=== PATIENT | female | born 2000 | race African-American/Black ===

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

== ENCOUNTER 2022-01-26 12:04 | Day surgery (SDC) | payer OTHER | END 2022-01-26 13:45 | disposition home or self-care (01) | LOC: CSHLD/OP 12:04 | PROVIDERS: ATTEND Student in an Organized Health Care Education/Training Program | DX: O26.852 Spotting complicating pregnancy, second trimester (principal); O99.891 Other specified diseases and conditions complicating pregnancy; R25.2 Cramp and spasm; O36.8320 Maternal care for abnormalities of the fetal heart rate or rhythm, second trimester, not applicable or unspecified; Z3A.26 26 weeks gestation of pregnancy; Z79.82 Long term (current) use of aspirin; Z88.0 Allergy status to penicillin; Z88.2 Allergy status to sulfonamides | CPT/HCPCS: 99282 ==

== ENCOUNTER 2022-03-19 22:48 | Day surgery (SDC) | payer OTHER ==
[2022-03-20 00:12] VITALS: BMI 44.4
[2022-03-20] MEDS ORDERED: hydrALAZINE 20 MG/ML VIAL SLOW IVP PRN (00:22)
[2022-03-20 00:54] LABS: Bilirubin Neg (Negative); Blood, Urine Negative (Negative); Clarity Slightly Cloudy (Clear); Glucose, Urine (Dipstick) Normal (Negative); Ketone, Urine Negative (Negative); Leukocyte 500 (Negative); Nitrite Negative (Negative); Protein, Urine (Dipstick) 15 mg/dl (Neg-Trace); Specific Gravity, Urine 1.015 (1.005-1.030); Urobilinogen Normal mg/dL (Less than 2)
[2022-03-20] MEDS ORDERED: Acetaminophen 500 MG TAB PO SCH (01:00)
[2022-03-20 01:05] LABS: #Neutrophils 6.2 10x3/uL (1.5-8.4); %Basophils 0.2 % (0.0-2.0); %Eosinophils 0.4 % (0.0-6.0); %Lymphocytes 23.8 % (18.0-47.0); %Monocytes 10.7 % (0.0-10.0); %Neutrophils 64.6 % (40.0-75.0); Hemoglobin 10.4 g/dL (12.0-15.5); Mean Corpuscular HGB CONC 34.2 g/dL (32.0-36.0); Mean Corpuscular Hemoglobin 28.6 pg (27.0-33.0); Mean Corpuscular Volume 83.5 fl (81.6-98.3); Mean Platelet Volume 9.7 fl (7.4-10.4); Platelet Count 273 10x3/uL (150-450); RBC Distribution Width 14.4 % (11.5-14.5); Red Blood Cell (RBC) Count 3.64 10x6/uL (3.90-5.03); White Blood Cell (WBC) Count 9.6 10x3/uL (3.5-10.5)
[2022-03-20] MEDS ORDERED: Acetaminophen 500 MG TAB ONE (01:11)
[2022-03-20 01:20] LABS: ALT (SGPT) 9 U/L (8-55); AST (SGOT) 14 U/L (5-30); Albumin 3.6 g/dL (3.5-5.0); Alkaline Phosphatase 98 U/L (40-100); Anion Gap 13 mmol/L (10-20); BUN (Urea Nitrogen) 5 mg/dL (8.4-21.0); Bilirubin, Total 0.3 mg/dL (0.2-1.2); Calc. Creatinine Clearance 270 mL/min (70-130); Calcium 9.2 mg/dL (7.8-10.44); Carbon Dioxide 20 mmol/L (22-29); Chloride 107 mmol/L (98-107); Estimated GFR 128; Globulin 3.2 g/dL (2.4-3.5); Glucose 100 mg/dL (70-105); Magnesium 1.6 mg/dL (1.7-2.2); Potassium 3.5 mmol/L (3.5-5.1); Protein, Total 6.8 g/dL (6.0-8.3); Sodium 136 mmol/L (136-145)
[2022-03-20 01:21] LABS: Bacteria/HPF 4+ HPF (None Seen); CAUTI Indications for Culture Pelvic or flank pain; RBC/HPF None Seen HPF (0-3)
[2022-03-20 01:23] LABS: Urine Culture Reflex No No
[2022-03-20] MEDS ORDERED: Magnesium Oxide 400 MG TAB PO SCH (02:45)
== END 2022-03-20 03:10 | disposition home or self-care (01) ==
LOC: CSHERS 22:48 → CSHLD/OP 23:50
PROVIDERS: ATTEND Obstetrics & Gynecology
DX: O47.02 False labor before 37 completed weeks of gestation, second trimester (principal); O99.213 Obesity complicating pregnancy, third trimester; O99.283 Endocrine, nutritional and metabolic diseases complicating pregnancy, third trimester; E83.42 Hypomagnesemia; O99.353 Diseases of the nervous system complicating pregnancy, third trimester; R56.9 Unspecified convulsions; Z3A.33 33 weeks gestation of pregnancy; Z79.82 Long term (current) use of aspirin; Z79.899 Other long term (current) drug therapy; Z88.0 Allergy status to penicillin; Z88.2 Allergy status to sulfonamides
CPT/HCPCS: 80053; 81001; 83735; 85025; 87086; 99284

== ENCOUNTER 2022-04-17 18:35 | Day surgery (SDC) | payer OTHER ==
[2022-04-17 19:10] VITALS: BMI 44.1
[2022-04-17] MEDS ORDERED: hydrALAZINE 20 MG/ML VIAL SLOW IVP PRN (19:31)
[2022-04-17 19:50] LABS: Fetal Membranes Rupture No Membranes Rupture (No Rupture)
== END 2022-04-17 21:27 | disposition home or self-care (01) ==
LOC: CSHLD/OP 18:35
PROVIDERS: ATTEND Obstetrics & Gynecology
DX: Z03.71 Encounter for suspected problem with amniotic cavity and membrane ruled out (principal); O23.593 Infection of other part of genital tract in pregnancy, third trimester; B96.89 Other specified bacterial agents as the cause of diseases classified elsewhere; Z88.0 Allergy status to penicillin; Z88.2 Allergy status to sulfonamides; Z3A.37 37 weeks gestation of pregnancy
CPT/HCPCS: 84112; 87480; 87510; 87660; 99285

== ENCOUNTER 2022-04-29 05:30 | Inpatient (IN) | payer OTHER ==
[2022-04-29] MEDS ORDERED: Bupivacaine/Epinephrine 0.25% 30 ML VIAL ONE (18:45)
[2022-04-29] MEDS ORDERED: Bupivacaine PF 0.5% 30 ML VIAL ONE (18:45)
[2022-04-29] MEDS ORDERED: Lidocaine 2% PF 5 ML VIAL ONE (18:45)
[2022-04-29] MEDS ORDERED: hydrALAZINE 20 MG/ML VIAL SLOW IVP PRN (19:32)
[2022-04-29] MEDS ORDERED: Methylergonovine 0.2 MG/ML VIAL IM PRN (19:32)
[2022-04-29] MEDS ORDERED: HYDROcodone/Acetaminophen 5/325 mg Tablet PO PRN ×2 (19:32)
[2022-04-29] MEDS ORDERED: Promethazine HCl 25 MG/ML VIAL IM PRN (19:32)
[2022-04-29] MEDS ORDERED: Ibuprofen 800 MG TAB PO PRN (19:32)
[2022-04-29] MEDS ORDERED: Misoprostol 200 MCG TAB PR PRN (19:32)
[2022-04-29] MEDS ORDERED: Ondansetron PF 4 MG/2 ML Vial IVP PRN (19:32)
[2022-04-29] MEDS ORDERED: Lidocaine 1% (PF) 30 ML VIAL SC PRN (19:32)
[2022-04-29] MEDS ORDERED: NS w/ Oxytocin 30 units 500 ML IV SCH (19:45)
[2022-04-29 20:58] VITALS: BMI 44.1
[2022-04-29] MEDS: Misoprostol 100 MCG TAB VAG SCH (21:02)
[2022-04-29 21:24] LABS: Hemoglobin 9.5 g/dL (12.0-15.5); Mean Corpuscular HGB CONC 32.1 g/dL (32.0-36.0); Mean Corpuscular Hemoglobin 25.7 pg (27.0-33.0); Mean Platelet Volume 9.6 fl (7.4-10.4); Platelet Count 305 10x3/uL (150-450); RBC Distribution Width 15.9 % (11.5-14.5); White Blood Cell (WBC) Count 8.7 10x3/uL (3.5-10.5)
[2022-04-29 21:36] LABS: HBSAg Index 0.15 S/CO (0-0.99); Hep B Surf Ag Non-Reactive S/CO (NonReactive); Syphilis Antibody Nonreactive (Nonreactive); Syphilis Antibody Index 0.08 S/CO (<1.00 Non-Reactive)
[2022-04-29 22:47] LABS: SARS-CoV-2 NAA Rapid Test Not Detected (NotDetected)
[2022-04-30] MEDS: Misoprostol 100 MCG TAB VAG SCH ×2 (00:14→04:11)
[2022-04-30] MEDS: Butorphanol Tartrate 1 MG/ML VIAL SLOW IVP PRN ×2 (13:05→15:34)
[2022-04-30] MEDS ORDERED: Fentanyl 2 mcg/Bup 0.1% Cadd 100 ML ONE (18:33)
[2022-04-30] MEDS ORDERED: Ondansetron PF 4 MG/2 ML Vial IVP PRN (19:09)
[2022-04-30] MEDS ORDERED: ePHEDrine Sulfate 50 MG/10 ML VIAL SLOW IVP PRN (19:09)
[2022-04-30] MEDS ORDERED: diphenhydrAMINE 50 MG/ML VIAL IVP PRN (19:09)
[2022-04-30] MEDS ORDERED: Lactated Ringer's 500 ML IV PRN (19:09)
[2022-04-30] MEDS ORDERED: Acetaminophen 325 MG TAB PO PRN (19:09)
[2022-04-30] MEDS ORDERED: Naloxone HCl 0.4 mg/ml Vial IVP PRN ×2 (19:09)
[2022-04-30] MEDS ORDERED: Moisturizing Cream (Eucerin) 113 GM JAR TOP PRN (19:09)
[2022-04-30] MEDS ORDERED: Promethazine HCl 25 MG/ML VIAL IM PRN (19:09)
[2022-04-30] MEDS: Fentanyl 2 mcg/Bupivacaine 0.1% Cassette 100 ML EPIDURAL SCH (19:10)
[2022-04-30] MEDS ORDERED: Communication Order-Pharmacy FS SCH (19:15)
[2022-05-01] MEDS: Fentanyl 2 mcg/Bupivacaine 0.1% Cassette 100 ML EPIDURAL SCH (01:27)
[2022-05-01] MEDS ORDERED: Azithromycin 500 MG VIAL ONE (01:38)
[2022-05-01] MEDS ORDERED: CEFAZOLIN 2 GM VIAL ONE (01:38)
[2022-05-01] MEDS ORDERED: diphenhydrAMINE 50 MG/ML VIAL IVP PRN (02:18)
[2022-05-01] MEDS ORDERED: Naloxone HCl 0.4 mg/ml Vial IVP PRN ×2 (02:18)
[2022-05-01] MEDS ORDERED: L&D-Morphine 4 MG/ML VIAL SLOW IVP PRN (02:18)
[2022-05-01] MEDS ORDERED: HYDROmorphone 2 MG/ML VIAL SLOW IVP PRN (02:18)
[2022-05-01] MEDS ORDERED: Naloxone HCl 0.4 mg/ml Vial IV PRN (02:18)
[2022-05-01] MEDS ORDERED: Fentanyl 100 MCG/2 ML VIAL SLOW IVP PRN (02:18)
[2022-05-01] MEDS ORDERED: Ondansetron HCl/PF 4 MG/2 ML Vial IVP PRN (02:18)
[2022-05-01] MEDS ORDERED: Moisturizing Cream (Eucerin) 113 GM JAR TOP PRN (02:18)
[2022-05-01] MEDS ORDERED: Ondansetron PF 4 MG/2 ML Vial IVP PRN (02:18)
[2022-05-01] MEDS ORDERED: Promethazine HCl 25 MG SUPP PR PRN (02:18)
[2022-05-01] MEDS ORDERED: Meperidine HCl/PF 25 MG/ML VIAL SLOW IVP PRN (02:18)
[2022-05-01] MEDS ORDERED: Promethazine HCl 25 MG/ML VIAL IM PRN (02:18)
[2022-05-01] MEDS ORDERED: Ondansetron PF 4 MG/2 ML Vial ONE (02:22)
[2022-05-01] MEDS ORDERED: Dexamethasone 4 mg/ml Vial ONE (02:22)
[2022-05-01] MEDS ORDERED: Oxytocin 10 UNITS/ML VIAL ONE (02:22)
[2022-05-01] MEDS ORDERED: Ketorolac Tromethamine 30 MG/ML VIAL IVP SCH (02:30)
[2022-05-01] MEDS ORDERED: Communication Order-Pharmacy FS SCH (02:30)
[2022-05-01] MEDS ORDERED: PHENYLEPHRINE-NS 100 MCG/ML 10 ML SYRINGE ONE (02:36)
[2022-05-01] MEDS ORDERED: Lidocaine 2% MPF 10 ML AMP (For Epidural Use) ONE (02:53)
[2022-05-01] MEDS ORDERED: Morphine PF 10 MG/10 ML VIAL ONE (02:59)
[2022-05-01 03:13] LABS: pH (Cord, venous) 7.369 (7.250-7.350)
[2022-05-01] MEDS ORDERED: hydrALAZINE 20 MG/ML VIAL SLOW IVP PRN (06:13)
[2022-05-01] MEDS ORDERED: Misoprostol 200 MCG TAB PR PRN (06:13)
[2022-05-01] MEDS ORDERED: Simethicone Chewable 80 MG TAB PO PRN (06:13)
[2022-05-01] MEDS ORDERED: Methylergonovine 0.2 MG/ML VIAL IM PRN (06:13)
[2022-05-01] MEDS ORDERED: Boostrix 0.5 ML (Tdap) VIAL (>/=7 yrs of age) IM ONE (06:13)
[2022-05-01] MEDS: Lactated Ringer's 1,000 ML IV SCH ×4 (06:51→15:39)
[2022-05-01] MEDS: Misoprostol 100 MCG TAB VAG SCH (07:02)
[2022-05-01] MEDS: Acetaminophen 325 MG TAB PO SCH ×5 (07:03→21:51)
[2022-05-01] MEDS: Docusate 100 MG CAP PO SCH ×2 (08:04→21:51)
[2022-05-01] MEDS: Prenatal Vitamin 1 TAB PO SCH (08:04)
[2022-05-01] MEDS: Ferrous Sulfate 325 MG TAB PO SCH ×2 (08:04→21:51)
[2022-05-01] MEDS: Ketorolac Tromethamine 30 MG/ML VIAL IVP PRN ×2 (08:04→14:35)
[2022-05-01 08:10] LABS: Hemoglobin 9.5 g/dL (12.0-15.5); Mean Corpuscular HGB CONC 32.2 g/dL (32.0-36.0); Mean Corpuscular Volume 80.8 fl (81.6-98.3); Mean Platelet Volume 9.6 fl (7.4-10.4); Platelet Count 294 10x3/uL (150-450); RBC Distribution Width 15.9 % (11.5-14.5); Red Blood Cell (RBC) Count 3.65 10x6/uL (3.90-5.03); White Blood Cell (WBC) Count 15.6 10x3/uL (3.5-10.5)
[2022-05-01] MEDS: HYDROcodone/Acetaminophen 5/325 mg Tablet PO PRN ×2 (16:55→21:51)
[2022-05-02] MEDS: HYDROcodone/Acetaminophen 5/325 mg Tablet PO PRN ×3 (02:30→19:25)
[2022-05-02] MEDS: Acetaminophen 325 MG TAB PO SCH ×6 (02:30→23:55)
[2022-05-02] MEDS: Ibuprofen 800 MG TAB PO SCH ×3 (05:57→21:15)
[2022-05-02] MEDS: Lactated Ringer's 1,000 ML IV SCH ×2 (07:01→09:34)
[2022-05-02] MEDS: Ferrous Sulfate 325 MG TAB PO SCH ×2 (09:10→21:15)
[2022-05-02] MEDS: Docusate 100 MG CAP PO SCH ×2 (09:11→21:14)
[2022-05-02] MEDS: Prenatal Vitamin 1 TAB PO SCH (09:11)
[2022-05-03] MEDS: Lactated Ringer's 1,000 ML IV SCH ×2 (04:06→11:53)
[2022-05-03] MEDS: Acetaminophen 325 MG TAB PO SCH ×2 (04:06→09:07)
[2022-05-03] MEDS: Ibuprofen 800 MG TAB PO SCH (06:14)
[2022-05-03 08:09] VITALS: BP 111/72; TEMP 98.1
[2022-05-03] MEDS: HYDROcodone/Acetaminophen 5/325 mg Tablet PO PRN (09:06)
[2022-05-03] MEDS: Docusate 100 MG CAP PO SCH (09:06)
[2022-05-03] MEDS: Prenatal Vitamin 1 TAB PO SCH (09:07)
[2022-05-03] MEDS: Ferrous Sulfate 325 MG TAB PO SCH (09:07)
== END 2022-05-03 13:26 | disposition home or self-care (01) | DRG 788 ==
LOC: CSHLD 20:01 → CSHPP 05-01 05:56
PROVIDERS: ADMIT Student in an Organized Health Care Education/Training Program; ATTEND Obstetrics & Gynecology
PROC: 10D00Z1 Extraction of Products of Conception, Low, Open Approach (ICD-10-PCS; principal; 2022-05-01)
PROC: 3E0334Z Introduction of Serum, Toxoid and Vaccine into Peripheral Vein, Percutaneous Approach (ICD-10-PCS; 2022-05-01)
PROC: 10907ZC Drainage of Amniotic Fluid, Therapeutic from Products of Conception, Via Natural or Artificial Opening (ICD-10-PCS; 2022-05-01)
PROC: 10H07YZ Insertion of Other Device into Products of Conception, Via Natural or Artificial Opening (ICD-10-PCS; 2022-05-01)
DX: O99.214 Obesity complicating childbirth (principal); O76 Abnormality in fetal heart rate and rhythm complicating labor and delivery; O99.344 Other mental disorders complicating childbirth; F31.9 Bipolar disorder, unspecified; Z20.822 Contact with and (suspected) exposure to COVID-19; F90.9 Attention-deficit hyperactivity disorder, unspecified type; Z3A.39 39 weeks gestation of pregnancy; Z37.0 Single live birth; Z88.0 Allergy status to penicillin; Z88.2 Allergy status to sulfonamides; Z88.1 Allergy status to other antibiotic agents; O90.81 Anemia of the puerperium; D64.9 Anemia, unspecified; Z79.899 Other long term (current) drug therapy; O26.893 Other specified pregnancy related conditions, third trimester; Z67.31 Type AB blood, Rh negative; Z79.82 Long term (current) use of aspirin; E66.01 Morbid (severe) obesity due to excess calories
CPT/HCPCS: 36415; 51702; 82805; 85027; 85461; 86780; 86850; 86900; 86901; 87340; 90384; 96372; J0595; J1100; J1885; J2001; J2274; J2405; J2590; S0020; U0002

== ENCOUNTER 2022-10-26 18:27 | Emergency (ER) | payer OTHER, SELFPAY | END 2022-10-26 20:01 | disposition home or self-care (01) | LOC: CSHERS 18:27 | DX: B35.1 Tinea unguium (principal) | CPT/HCPCS: 99283 ==

== ENCOUNTER 2023-12-08 19:47 | Emergency (ER) | payer SELFPAY ==
[2023-12-08 22:17] LABS: #Basophils 0.06 10x3/uL (0.0-0.2); #Eosinophils 0.41 10x3/uL (0.0-0.5); #Monocytes 1.21 10x3/uL (0.0-1.1); #Neutrophils 4.18 10x3/uL (1.5-8.4); %Basophils 0.6 % (0.0-2.0); %Eosinophils 4.2 % (0.0-6.0); %Lymphocytes 38.9 % (18.0-47.0); %Monocytes 12.4 % (0.0-10.0); %Neutrophils 42.8 % (40.0-75.0); ALT (SGPT) 16 U/L (8-55); AST (SGOT) 20 U/L (5-34); Albumin 4.4 g/dL (3.5-5.0); Alkaline Phosphatase 49 U/L (40-110); Anion Gap 16 mmol/L (10-20); BUN (Urea Nitrogen) 17 mg/dL (7.0-18.7); Bilirubin, Total 0.5 mg/dL (0.2-1.2); Calc. Creatinine Clearance 0 mL/min (70-130); Calcium 10.1 mg/dL (7.8-10.44); Carbon Dioxide 19 mmol/L (22-29); Chloride 109 mmol/L (98-107); Estimated GFR 73; Globulin 3.6 g/dL (2.4-3.5); Glucose 88 mg/dL (70-105); Hematocrit 42.8 % (34.9-44.5); Hemoglobin 14.5 g/dL (12.0-15.5); Mean Corpuscular HGB CONC 33.9 g/dL (32.0-36.0); Mean Corpuscular Hemoglobin 30.7 pg (27.0-33.0); Mean Corpuscular Volume 90.5 fL (81.6-98.3); Mean Platelet Volume 10.1 fL (7.4-10.4); Platelet Count 328 10x3/uL (150-450); RBC Distribution Width 13.5 % (11.5-14.5); Red Blood Cell (RBC) Count 4.73 10x6/uL (3.90-5.03); Sodium 140 mmol/L (136-145); White Blood Cell (WBC) Count 9.8 10x3/uL (3.5-10.5)
[2023-12-08] MEDS ORDERED: levETIRAcetam 500 MG (5 mL) VIAL ONE (22:24)
[2023-12-09 00:35] LABS: Bilirubin Neg (Negative); Blood, Urine Negative (Negative); Clarity Slightly Cloudy (Clear); Glucose, Urine (Dipstick) Normal (Negative); Ketone, Urine 15 mg/dL (Negative); Leukocyte Negative (Negative); Nitrite Negative (Negative); Protein, Urine (Dipstick) Negative (Neg-Trace)
[2023-12-09 00:55] LABS: Bacteria/HPF Rare-Few HPF (None Seen); CAUTI Indications for Culture Fever or rigors; RBC/HPF 0-3 HPF (0-3); WBC/HPF 0-3 HPF (0-3)
[2023-12-09 00:57] LABS: Urine Culture Reflex No No
== END 2023-12-09 01:15 | disposition home or self-care (01) ==
LOC: CSHERS 19:47
DX: R56.9 Unspecified convulsions (principal); R06.02 Shortness of breath; R04.0 Epistaxis; I10 Essential (primary) hypertension; F17.290 Nicotine dependence, other tobacco product, uncomplicated
CPT/HCPCS: 71045; 80053; 81001; 83735; 83880; 85025; 93005; 96374; J1953

== ENCOUNTER 2024-11-19 18:47 | Emergency (ER) | payer OTHER, SELFPAY | END 2024-11-19 21:45 | LOC: CSHERS 18:47 | DX: H10.9 Unspecified conjunctivitis (principal); F17.290 Nicotine dependence, other tobacco product, uncomplicated | CPT/HCPCS: 87428; 99283 ==